=== PATIENT | male | born 1985 | race Caucasian/White ===

== ENCOUNTER 2017-12-22 13:47 | Day surgery (SDC) | payer MEDICAID ==
[~2017-12-22] VITALS: Ht 172.7 cm; Wt 70.5 kg
--- NOTE | ~2017-12-22 | OP ---
PATIENT NAME: MATTI CUMMINS MEDICAL RECORD: [id number] :86 LOCATION:[id number] ADMISSION DATE:12/22/17 SURGEON: MANSOOR MARTIN MD DATE OF OPERATION: 12/23/2017 SURGEON: Mansoor Martin MD ANESTHESIA: General anesthesia by Justice Yang CRNA DIAGNOSES: 1. Schizophrenia. 2. Retained foreign body in the urethra with urinary obstruction. PROCEDURES: Cystoscopy, perineal urethrostomy, foreign body removal. FINDINGS: Button top Torx head 1/4 inch x 2-1/2 inch bolt in the bulbar urethra, with manipulation we tried to remove it, it ended up in the bladder where we finally did remove it. ESTIMATED BLOOD LOSS: Minimal. CLINICAL HISTORY: This is a 31-year-old male who is a prisoner at the [facility] in [place]. He managed to insert a bolt, which he removed from the light fixture in his custodial cell, into the bulbar urethra. He is not able to void around the obstruction. He is in urinary retention. He was brought by the custodial guards to the Emergency Room. An x-ray of the pelvis shows the bolt in position in the bulbar urethra. He has not eaten anything since 2:00 a.m. on 12/22/2017. He has a known history of schizophrenia and bipolar disorder. Apparently, the custodial doctor decided to stop all of the patient's psychiatric medications. As a result, the patient was hearing voices, which told him to insert this object into his urethra. Also, the patient said that proximal to the bolt, there is a fragment of a razor blade. On the x-ray performed in the Emergency Room, I did not see a razor blade, but nevertheless I will perform a cystoscopic examination to make sure that there is no razor blade fragment left in the patient's bladder. HE IS ALLERGIC TO PENICILLIN. He was given Levaquin on-call to the OR. Due to the long OR list proceeding, he ended up having his surgery done after midnight. DESCRIPTION OF PROCEDURE: The patient was given induction of general anesthesia. He was placed in the dorsal lithotomy position and prepped and draped. Fluoroscopy was performed, which again verified the position of the bolt in the bulbar urethra. I did not see any metal fragments, which would correspond to a fragment of a razor blade. We then used a 21-Slovenian cystoscope with 30-degree lens for visualization. The urethra is intact with no signs of cuts from a blade. No strictures are seen. The bolt was seen lodged in the bulbar urethra. The bolt was located so that the head of the bolts faces distally and the screw portion of the bolt faces proximally. We attempted with various baskets to try to extract the bolt cystoscopically. This was unsuccessful. Therefore, I decided that we would have to perform a perineal urethrostomy. The scrotum was sutured to the drape in the suprapubic region using a 2-0 nylon. The perineum was shaved, prepped, and draped. A 1.5 cm incision was made in the midline in the region of the bulbar urethra. When we had been performing OPERATIVE REPORT [id number] MATTI CUMMINS cystoscopy, I could actually palpate the region of the bolt by palpating with the tip of the scope. Leana fascia was incised using Metzenbaum scissors. The bulbospongiosus muscle was dissected away using Metzenbaum scissors, I did not divide the bulbospongiosus muscle and instead I just merely the bulbospongiosus muscle from the underlying urethra. The muscle itself was left intact. The muscle was tacked away using a 2-0 nylon to prevent its obstruction of the urethra. Two times 2-0 nylon stay sutures were placed opposite to the midline of the bulbar urethra. A 1 cm incision was made in the bulbar urethra using a 10 blade. I inserted a red rubber catheter into the urethra and we cut on to the red rubber catheter. I was able to use a hemostat and pulled the red rubber catheter out of the perineal urethrostomy. I then attempted to use a hemostat to try to grasp the bolt out. Instead it seemed to have pushed the bolt further proximally. Therefore, I used the cystoscope through the perineal urethrostomy to try to identify the position of the bulb. The bulb ended up in the bladder. At this point, the bladder was fully emptied through the cystoscope sheath. We switched to the rigid grasping forceps. I was able to now grasp the head of the bolt and extract it out through the perineal urethrostomy. It was sent to pathology as specimen for identification. I repeated the fluoroscopy and saw no further metal fragments. Cystoscopy also directly showed no further metal fragments. The patient has single ureteral orifices bilaterally and no bladder tumors were seen. At this point, the perineal urethrostomy was closed with simple interrupted sutures of 4-0 Monocryl in order to close the urethra. The bulbospongiosus muscle was put back into position. The Leana fascia was reapproximated using simple interrupted 4-0 Monocryl. The skin of the perineum was reapproximated using 4-0 Monocryl in simple interrupted fashion. Dermabond was placed over the incision. We did insert a 16-Slovenian Savage catheter prior to closing the perineal urethrostomy to be sure that it would go into the bladder. This Savage catheter was inflated with 10 cc of sterile water. I have discussed the situation with the custodial physician. He will keep the catheter in for a period of 7 days to allow the urethra to heal and then remove the Savage catheter. I will not be seeing the patient any further unless there is some new pressing issue. TRANSINT:[id number] Voice Confirmation ID: [id number] DOCUMENT ID: [id number] MANSOOR MARTIN MD at 1115 CC: [id number] DICTATION DATE: 12/23/1743 PLAN CHECKER: 12/23/17 0832 DIS IN 12/23/17 [facility] [address] [place] [address]
[2017-12-22 13:40] VITALS: BP 141/87
[~2017-12-22 13:47] MED LIST: BENZTROPINE MESY2 MG PO; COLACE100 MG PO; HALDOL DECA100 MG/M1 INJ; HYDROCHLOROTH12.5 M1 PO; INDERAL10 MG PO; ZANTAC150 MG PO; ZYRTEC10 MG PO
[2017-12-22 14:58] VITALS: BP 125/96
[2017-12-22 17:00] VITALS: BP 125/90; Ht 172.7 cm; Wt 70.5 kg
[2017-12-22 20:00] VITALS: BP 128/91
[2017-12-23 01:33] VITALS: BP 131/75
== END 2017-12-23 03:40 | disposition home or self-care (01) ==
LOC: OBSVTIME → D.OPS 13:47 → D.MS 14:00 → D.EDHOLD 14:00 → D.ER 14:00 → OBSVTIME 14:01 → D.EDHOLD 14:35 → D.MS 14:35 → D.OPS 12-23 03:40 → D.MS 12-23 03:40
DX: T19.0XXA Foreign body in urethra, initial encounter (principal); X58.XXXA Exposure to other specified factors, initial encounter; Y92.149 Unspecified place in prison as the place of occurrence of the external cause; N13.8 Other obstructive and reflux uropathy; Z88.0 Allergy status to penicillin; Z01.812 Encounter for preprocedural laboratory examination; F20.9 Schizophrenia, unspecified; F31.9 Bipolar disorder, unspecified

== ENCOUNTER 2018-06-14 11:28 | Inpatient (IN) | payer MEDICAID ==
[~2018-06-14] VITALS: Ht 172.7 cm; Wt 69.1 kg
[2018-06-14 13:17] LABS: ALBUMIN 3.6 g/dL (3.4-5.0); ALKALINE PHOSPHATASE 58 U/L (46-116); ALT (SGPT) 33 U/L (10-68); BASOPHILS 0.3 % (0-2); BILIRUBIN - TOTAL 0.57 mg/dL (0.2-1.3); CALC OSMOLALITY 275 mosm/kg (275-300); CALCIUM 8.9 mg/dL (8.5-10.1); CHLORIDE - SERUM 99 mmol/L (98-107); CREATININE - SERUM 0.7 mg/dL (0.6-1.3); EOSINOPHILS 1.8 % (0-7); GLUCOSE 95 mg/dL (74-106); HEMATOCRIT 42.6 % (42.0-54.0); HEMOGLOBIN 14.6 g/dL (13.5-17.5); IMMATURE GRANULOCYTES 0.3 % (0-5); LYMPHOCYTES 13.9 % (15-50); MCH 31.3 pg (26.0-34.0); MCHC 34.3 g/dL (31.0-37.0); MCV 91.4 fL (80.0-100.0); MEAN PLATELET VOLUME 9.6 fL (7.4-10.4); MONOCYTES 8.3 % (2-11); NEUTROPHILS 75.4 % (40-80); PLATELET COUNT 169 10x3/uL (130-400); POTASSIUM - SERUM 3.8 mmol/L (3.5-5.1); PROTEIN - SERUM 7.7 g/dL (6.4-8.2); RBC 4.66 10x6/uL (4.20-6.10); RDW 13.2 % (11.5-14.5); SODIUM 138 mmol/L (136-145); UREA NITROGEN 12 mg/dL (7-18); eGFR NON AFRICAN AMERICAN > 90 mL/min (90-120)
[2018-06-14 13:57] LABS: APPEARANCE HAZY (CLEAR); COLOR STRAW (YELLOW); NITRITE NEGATIVE (NEGATIVE); SPECIFIC GRAVITY 1.005 (1.005-1.020)
[2018-06-14 13:58] LABS: BACTERIA MODERATE /hpf (NONE SEEN); BILIRUBIN NEGATIVE (NEGATIVE); EPITHELIAL CELLS 0-5 /hpf (0-5); GLUCOSE NEGATIVE (NEGATIVE); KETONE MODERATE mg/dL (NEGATIVE); MUCUS <1+ /lpf (NONE SEEN); PROTEIN TRACE mg/dL (NEGATIVE); UROBILINOGEN NORMAL (NORMAL)
[2018-06-14] MEDS ORDERED: CARBATROL 200200 MG PO (15:48)
[2018-06-14 15:56] VITALS: BP 138/75; BMI 23.1
[2018-06-14 20:30] VITALS: BP 115/76
--- NOTE | 2018-06-15 08:42 | OP ---
PATIENT NAME: MATTI CUMMINS MEDICAL RECORD: [id number] :86 LOCATION:[facility] D.[id number] ADMISSION DATE:06/14/18 SURGEON: MANSOOR MARTIN MD DATE OF OPERATION: 06/14/2018 SURGEON: Mansoor Martin MD ANESTHESIA: General anesthesia by Roldan Guillaume CRNA. DIAGNOSIS: Two urethral foreign bodies. PROCEDURES: Cystoscopy and removal of 2 urethral foreign bodies. FINDINGS: Two bolts 1/4 inch x 20 x 1.5 inches long in the bulbar urethra. SPECIMEN: Two urethral foreign bodies, which are a 1/4 inch x 20 x 1.5 inch bolts. ESTIMATED BLOOD LOSS: Minimal. CLINICAL HISTORY: This is a 32-year-old male, who is a prisoner in [facility]. He has schizophrenia as well as hepatitis C. In the past, he has taken bolts out of lamp fixture in his cell and put them into his urethra. In December of 2017, I had to perform a perineal urethrotomy to remove a 2-inch long bolt, which was completely wedged in the bulbar urethra. Now, he has done the same thing and he needs to have these foreign bodies removed. He also swallowed a piece of metal which may be a razor blade and it is seen on the x-ray in the descending colon. He is not allergic to medications. He was given Ancef extension edger to the OR. DESCRIPTION OF PROCEDURE: The patient was given induction of general anesthesia. He was then placed in the dorsal lithotomy position and prepped and draped. A 21-Finnish cystoscope with 30-degree lens was used for visualization. The 2 bolts were seen in the bulbar urethra with the head of the bolts facing distally and the tail of the bolts facing towards the bladder. The head is mushroom shaped in therefore offered no purchase for a grasping forceps. I tried the Han basket and it was too small to get around the head of the bolts. Finally, I used a 3 Finnish 4 wire basket and I managed to catch the shank of one of the bolt and removed it entirely. The other bolt would not come this way. I had to push the second bolt all the way into the bladder using the scope. Once in the bladder, I was able to catch the shank of the bolt with the 4 wire basket and then removed it entirely. The bladder was emptied through the cystoscope sheath and then the scope was removed. The patient will be going [facility]. TRANSINT:[id number] Voice Confirmation ID: [id number] DOCUMENT ID: [id number] OPERATIVE REPORT [id number] MATTI CUMMINS ROBERT S MD at 0842 CC: [id number] DICTATION DATE: 06/14/181906 REFRACTORY TILE HELPER: 06/15/18211 DIS IN 06/14/18 [facility] [address] [place] [id number]
[2018-06-15 09:11] VITALS: Ht 172.7 cm; Wt 69.1 kg
== END 2018-06-14 21:42 | DRG 700 ==
LOC: D.ER 11:28 → D.ICU 14:25
PROVIDERS: Family Medicine; ADMIT Urology
PROC: 0TCD8ZZ Extirpation of Matter from Urethra, Via Natural or Artificial Opening Endoscopic (ICD-10-PCS; principal; 2018-06-14 17:15)
DX: T19.0XXA Foreign body in urethra, initial encounter (principal); F20.9 Schizophrenia, unspecified; B19.20 Unspecified viral hepatitis C without hepatic coma; K21.9 Gastro-esophageal reflux disease without esophagitis

== ENCOUNTER 2018-10-06 09:31 | Day surgery (SDC) | payer OTHER | END 2018-10-06 17:45 | disposition home or self-care (01) | LOC: D.OPS 09:31 | DX: T18.0XXA Foreign body in mouth, initial encounter (principal); X58.XXXA Exposure to other specified factors, initial encounter; Y92.149 Unspecified place in prison as the place of occurrence of the external cause; Z01.812 Encounter for preprocedural laboratory examination ==